=== PATIENT | male | born 1980 | race Caucasian/White ===

== ENCOUNTER 2017-04-07 15:17 | Emergency (ER) | payer OTHER, SELFPAY ==
[2017-04-07] MEDS ORDERED: Ondansetron 4 MG/2 ML SDV IVPUSH ONE (15:48)
[2017-04-07] MEDS ORDERED: Sodium Chloride 0.9% 1,000 ML IV ONE (15:48)
[2017-04-07] MEDS ORDERED: HYDROmorphone 1 MG/ML Syringe IVPUSH ONE (15:48)
[2017-04-07] MEDS ORDERED: Ketorolac 30 MG/ML SDV IVPUSH ONE (15:49)
[2017-04-07 15:51] VITALS: BP 149/92
[2017-04-07] MEDS ORDERED: Tamsulosin 0.4 MG Cap.ER PO ONE (16:14)
[2017-04-07 16:30] LABS: CHLORIDE,CL 105 mmol/L (98-107); SODIUM,NA 141 mmol/L (136-145)
[2017-04-07] MEDS ORDERED: Take Home: Acetaminophen/HYDROcodone 325-10 MG, 5 Tab Pack PO ONE (17:16)
--- NOTE | 2017-04-09 07:44 | ER ---
Date of Service: 04/07/2017 SUBJECTIVE: Hossein presents to the emergency room with complaints of left lower abdominal pain that started approximately 45 minutes prior to coming to the emergency room. The patient stated that he vomited twice at the onset of the discomfort. He states, he has not experienced pain like this in the past. He states that he became extremely diaphoretic. The patient states that the discomfort was extremely rapid in onset. He characterizes the pain as sharp in nature with radiation to the glans of his penis. PAST MEDICAL HISTORY: Denies. MEDICATIONS: None. ALLERGIES: NKDA. REVIEW OF SYSTEMS: General: No fever or chills. HEENT: No sore throat, rhinorrhea, or congestion. Respiratory: No shortness of breath. Cardiac: Denies any substernal chest pain. GI: Please see history of present illness. No melena hematochezia hematemesis. Neurologic: No fainting, blackouts, or lightheadedness. PHYSICAL EXAMINATION: General: This is a 36-year-old male patient, who is in a moderate amount of distress. Vital Signs: Blood pressure is 149/92, pulse rate is 83, temperature is 35.8, respiratory rate 16, O2 saturations 97%. Skin: Warm, pink, and dry. HEENT: Mouth, oral mucosa is moist. Lungs: Clear to auscultation. Heart: Regular rate and rhythm. Abdomen: Soft, nontender. There is no hepatosplenomegaly noted. There is no masses noted. No CVA tenderness. Neurologic: He is alert and oriented, answers all questions appropriately. LABORATORY DATA: WBCs 8.4, hemoglobin is 15.6, platelets are 247. Chemistry sodium is 141, potassium is 3.5, chloride is 105, bicarb is 28, BUN is 13, creatinine is 1.2. Creatinine clearance is 82.69. GFR is greater than 60. Glucose is 113, calcium is 9.1, corrected calcium is 8.78, total bilirubin is 0.6, AST is 12, ALT is 27, alkaline phosphatase is 61, total protein is 8.0. Urinalysis was obtained, he did have 30 protein, 100 glucose, did have moderate occult blood, negative for nitrites and leukocyte esterase, and bilirubin, and 10-20 RBCs per high-power field. CT scan of the patient's abdomen and pelvis without IV contrast was obtained. It did have evidence of 6 mm kidney stone at the left UVJ with no evidence of any hydronephrosis. EMERGENCY ROOM COURSE: IV access was established. The patient was given a liter of normal saline, 1 mg of Dilaudid, 30 mg of Toradol, and 4 mg of Zofran. He reported significant improvement in his discomfort and remained pain-free during the remainder of his stay here in the emergency room. He was also given 0.4 mg of Flomax p.o. He remained stable my care in the emergency room. ASSESSMENT: A 6 mm kidney stones at the left ureterovesical junction. PLAN: The patient will be discharged. He was given a short course of [place] 10/325 with instructions to take 1 to 2 every 4-6 hours as needed for pain. He was also started on Flomax to help with dilation of the ureter, was given a strainer to strain his urine. I would like him to follow up in the clinic in the next 5 to 7 days and return to the emergency room if the discomfort is unrelenting. All questions were answered. MWK: 04/08/2017 18:33:30 MODL: 04/08/2017 22:53:40 /[id number]
== END 2017-04-07 17:39 | disposition home or self-care (01) ==
LOC: VM.ED 15:17
DX: N20.1 Calculus of ureter (principal)
CPT/HCPCS: 36415; 74176; 80053; 81001; 85025; 96361; 96374; 96375; 99284; A9270; J1170; J1885; J2405; J7030